=== PATIENT | male | born 1935 | race Caucasian/White ===

== ENCOUNTER → 2018-01-19 06:09 | Outpatient (CLI) | payer MEDICARE, SELFPAY ==
--- NOTE | 2018-01-19 17:43 | STRESSREP_ITS ---
Stress Test Report Pharmacologic myocardial perfusion stress test. 82-year-old man with a history of coronary artery disease status post carotid bypass surgery. Stress protocol: Resting EKG demonstrates sinus bradycardia with a rate of 52 bpm normal intervals and noted resting blood pressure is 102/70 mmHg. 0.4 mg of regadenoson was infused per usual protocol followed by rapid intravenous saline flush injection continuous EKG monitoring was performed. The maximum heart rate attained was 64 bpm which was 46% maximum predicted heart rate the maximum workload attained was 1 metabolic equivalent. At rest there were no ST or T- wave changes noted to suggest abnormal flow reserve at peak infusion no ST or T- wave changes were noted to suggest abnormal flow reserve. Myocardial perfusion protocol. 10.8 mCi of technetium 99m sestamibi was injected at rest. 0.4 mg of regadenoson was infused per usual protocol. At peak infusion 36.0 mCi of technetium 99m sestamibi was injected stress images were obtained stress and rest images were reconstructed and compared in the short axis vertical long and horizontal long axis. Gated images were also obtained pre- Perfusion SPECT analysis: Review of the stress images demonstrate normal uptake of tracer noted in all areas myocardium except for small portion of the apex with mildly reduced perfusion. This is present on the stress and rest images to a similar extent. No areas of reversibility are noted suggest ischemia. Gated SPECT analysis: The gated ejection fraction is noted to be 58%. Conclusion: Normal pharmacologic myocardial perfusion stress test. Preserved ejection fraction.
== END ==
PROVIDERS: Family Provider Family Medicine; PCP Family Medicine; Visit Provider Physician Assistant Medical
DX: I25.10 Atherosclerotic heart disease of native coronary artery without angina pectoris (principal); I10 Essential (primary) hypertension; E78.5 Hyperlipidemia, unspecified; R07.9 Chest pain, unspecified
CPT/HCPCS: 78452; 93017; A9500; A4216; J2785

== ENCOUNTER → 2018-07-27 10:12 | Outpatient (CLI) | payer MEDICARE, SELFPAY ==
[2018-07-27 12:30] LABS: Absolute Lymphocyte Count 0.99 X10^3/ul (0.83-4.51); Absolute Neutrophil Count 4.1 X10^3/uL (2.0-7.7); Basophil# 0.06 X10^3/uL; Eosinophil# 0.33 X10^3/uL; Eosinophils% 5.4 % (0-5); Hematocrit 44.5 % (40-54); Hemoglobin 15.1 g/dl (13.0-16.5); Lymphocyte # 0.99 X10^3/ul (4.0); Lymphocyte % 16.2 % (19-41); Mean Corp Hgb Conc 33.9 g/gl (32-36); Mean Corpuscular Hgb 29.8 pg (27.0-32.0); Mean Corpuscular Volume 87.8 fL (80-94); Mean Platelet Vol. 9.1 fl (6.2-12.0); Monocyte# 0.61 X10^3/uL; Neutrophil # 4.11 X10^3/uL (2.7-7.7); Neutrophil % 67.2 % (47-70); Platelet Count 188 K/mm3 (150-450); RBC Distribution Width CV 14.4 % (11.6-14.6); Red Blood Count 5.07 M/mm3 (4.6-6.2); White Blood Count 6.1 K/mm3 (4.4-11.0)
[2018-07-27 12:37] LABS: POSITIVE COUNT NO; POSITIVE DIFFERENTIAL NO; POSITIVE MORPHOLOGY NO
[2018-07-27 12:45] LABS: AST(SGOT) 29 U/L (15-37); Alanine Aminotransfer ALT/SGPT 31 U/L (16-61); Albumin, Serum 3.5 g/dL (3.2-5.0); Alkaline Phosphatase 94 U/L (45-117); Anion Gap 7 (5-15); BUN 19 mg/dL (7-18); BUN/Creat Ratio 14.4 RATIO (10-20); Bilirubin, Direct 0.18 mg/dL (0.00-0.30); Calcium,Total 8.5 mg/dL (8.5-10.1); Chloride 102 mmol/L (98-107); Cholesterol 118 mg/dL (200); Creatinine, Serum 1.32 mg/dL (0.70-1.30); EST Glomerular Filtration Rate 55 mL/min (>60); Est Glom Filt Rate - Afr Amer 67 mL/min (>60); Globulin 3.5 g/dL (2.2-4.2); Glucose 101 mg/dL (74-106); High Density Lipoprotein 39 mg/dL; Potassium 3.9 mmol/L (3.5-5.1); Sodium Level 139 mmol/L (136-145); Thyroid Stim Hormone (TSH) 2.23 uIU/mL (0.358-3.74); Triglycerides 109 mg/dL; Very Low Density Lipoprotein 22 mg/dL (5-40)
== END ==
PROVIDERS: Physician Assistant Medical; Family Provider Family Medicine; PCP Family Medicine; Visit Provider Family Medicine
DX: I12.9 Hypertensive chronic kidney disease with stage 1 through stage 4 chronic kidney disease, or unspecified chronic kidney disease (principal); N18.3 Chronic kidney disease, stage 3 (moderate); E78.5 Hyperlipidemia, unspecified; Z79.899 Other long term (current) drug therapy
CPT/HCPCS: 36415; 80053; 80061; 82248; 84443; 85025

== ENCOUNTER → 2019-02-05 | Outpatient (CLI) | payer MEDICARE, SELFPAY ==
[2018-08-07 15:00] VITALS: BMI 27.6
--- NOTE | 2019-02-05 | TISS_PTH ---
PATIENT: ALLY LOMAX LOC: [facility] U#:[id number] AGE/SX: 83/M ROOM: RE02/05/[address]: Dr. Garo Lockett DDS : 1935 BED: DIS: 02/05/2019 SPEC #: [id number] RECD: 02/05/19 12:00 STATUS: PATRICIA MARLIN #: [id number] RAVI: 02/05/19 00:[address]: Garo Lockett DEPT: SURGICAL PATHOLOGY RECD BY: Phillip Ruth ENTERED: 02/05/19 13:40 SP TYPE: Tissue Bx ZEUS DR: Dr. Donovan Webber MD Tissues: Skin of lip, NOS Procedures: PAS Fungus (control) Special Stain Group I Surgery Specimen Level IV HEADER OPERATION: Lip biopsy PRE-OP DIAGNOSIS: Lesion lip TISSUE SUBMITTED: Lower lip, rule out actinic changes, squamous cell MICROSCOPIC DIAGNOSIS Lower lip lesion, biopsy: Squamous mucosa with acanthosis, hyperkeratosis, parakeratosis and minimal actinic changes. Solar elastosis. Special stain for fungi is negative for organisms; matched control is appropriate. EDIL:armaan 02/06/19 COMMENT Case has been reviewed in consultation with Dr. Muller who concurs with the above diagnosis. IDC:AM MICROSCOPIC DESCRIPTION Slides are reviewed. GROSS DESCRIPTION Received in fixative is one container labeled with the patient's name and designated lower right lip. The specimen consists of a piece of oneill mucosal tissue measuring 0.6 x 0.3 x 0.3 cm. The specimen is bisected and submitted entirely in one cassette. / EDIL:armaan 02/05/19 TC:5 CPT: 89622, 71205
== END | disposition home or self-care (01) ==
LOC: LABSPEC 13:25
PROVIDERS: Family Provider Family Medicine; PCP Family Medicine; Referring Provider Dentist Oral and Maxillofacial Surgery; Visit Provider Dentist Oral and Maxillofacial Surgery
DX: L83 Acanthosis nigricans (principal); L85.9 Epidermal thickening, unspecified; L57.8 Other skin changes due to chronic exposure to nonionizing radiation
CPT/HCPCS: 88305; 88312

== ENCOUNTER → 2019-02-20 | Outpatient (CLI) | payer MEDICARE, SELFPAY ==
[2018-08-07 15:00] VITALS: BMI 27.6
--- NOTE | 2019-02-20 13:47 | RAD_ITS ---
STUDY: X-RAY - RIGHT SHOULDER REASON FOR EXAM: Male, 83 years old. Pain TECHNIQUE: 4 view(s) of the shoulder. COMPARISON: None. FINDINGS: There is no evidence of fracture or dislocation. There are mild degenerative changes in the acromioclavicular joint. There are no radiodense foreign bodies. RAD/Shoulder min 2 Views IMPRESSION: No fracture or dislocation of the right shoulder. Mild degenerative changes in the acromioclavicular joint. Electronically Signed: Jim Santo, at 14:21 EDT Tel , Service support ,
--- NOTE | 2019-02-20 13:50 | RAD_ITS ---
STUDY: X-RAY - RIGHT HUMERUS REASON FOR EXAM: Male, 83 years old. Pain TECHNIQUE: 2 view(s) of the humerus. COMPARISON: None. FINDINGS: There is no evidence of fracture or dislocation. There are no significant degenerative changes. There are no radiodense foreign bodies. RAD/Humerus min 2 Views IMPRESSION: No fracture or dislocation. Electronically Signed: Jim Santo, at 14:19 EDT Tel , Service support ,
== END | disposition home or self-care (01) ==
PROVIDERS: Family Provider Family Medicine; PCP Family Medicine; Referring Provider Family Medicine; Visit Provider Family Medicine
DX: M25.511 Pain in right shoulder (principal); M79.601 Pain in right arm
CPT/HCPCS: 73030; 73060

== ENCOUNTER 2019-04-19 10:30 | Outpatient (RCR) | payer MEDICARE, SELFPAY ==
[2018-08-07 15:00] VITALS: BMI 27.6
--- NOTE | 2019-02-26 09:15 | HP.PTEVAL_ITS ---
Patient's Visit Information ALLY LOMAX is a 83 year old M referred to Physical Therapy by Donovan Webber MD with a diagnosis of R shoulder pain. Date of Evaluation: 02/26/19 Physical Therapist: SYEDA Lozano - Visit Plan Frequency: 2x /Week Duration: 3 Weeks Plan: 2X/ week for 3 weeks for R shoulder AROM, PROM, RC strength, scapular strength, stretching at end ranges, US to the anterior shoulder, postural exercises with HEP - Subjective Findings: Pt likes to sleep on his R side and it was waking him up at night. He tried to sleep on the other side and it was hard to do. It has steadily got worse and now it is hard to comb hair in the morning. They took an x-ray last week and could not find anything wrong. This has been going on for 5-6 months. He is R handed but he can use his L hand. He can feel pain sitting here in the bicep area and rates it as a 1-2/10. Dr gave him tramadol and he takes it at night when trying to sleep. He does not think that they are helping him very much. He feels at times his R arm is weak. It is generally raising motions that hurt him. - Pain R shoulder Pain Intensity (Out of 10): 2 - Objective R handed: R shoulder flexion 115, ABD 105, IT T 12, ER 49. L shoulder flexion 130, ABD 132, IR T8, 51. R shoulder MMT: flexion 4-/5, abd 4-/5, ER 4/5, IR 4/5. L shoulder MMT: flexion 4/5, abd 4/5, ER 4+/5, IR 4 +/5. Palpation: tender undert the R acromion compared to the L. + HK test, + impingement, + empty can on the R for pain and slight weakness - Goals Goal 1:: I HEP Goal Time Frame: 4-6 Weeks Goal 2:: Increase R shoulder AROM to equal that of the L Goal Time Frame: 4-6 Weeks Goal 3:: Increase R shoulder MMT to equal that of the L Goal Time Frame: 4-6 Weeks Goal 4:: Decrease R shoulder pain to be able to lay on the R side and lift overhead with less than 1/10 pain Goal Time Frame: 4-6 Weeks - Rehabilitation Potential Rehabilitation Potential: Good - Anticipated Interventions Patient/Client Instruction: Educate patient on: Condition, Plan of Care For the Purpose of:: To decrease pain, To decrease swelling/inflammation, To increase ROM, To improve nutrient delivery to tissue, To improve muscle performance and motor function, To improve ability to perform ADL's, To increase tolerance to activity/condition/position, To improve performance and independence with ADL's, To improve ability of physical actions for home/community/work/leisure, To decrease soft tissue restriction, To increase flexibility/ROM Therapeutic Exercise to Include: Strength training, Postural training, Flexibilty training, Passive ROM, Active ROM, Scapular Strength/Stabilization For the Purpose of:: To decrease pain, To increase ROM, To improve nutrient delivery to tissue, To improve muscle performance and motor function, To improve ability to perform ADL's, To improve health of tissue, To decrease soft tissue restriction, To increase flexibility/ROM Manual Therapy Techniques to Include: Mobilization, Passive ROM For the Purpose of:: To decrease pain, To decrease swelling/inflammation, To increase ROM, To improve nutrient delivery to tissue Cryotherapy (ice pack, ice massage): Yes Ultrasound (thermal/non thermal): Yes For the Purpose of:: To decrease pain, To decrease swelling/inflammation, To increase ROM, To improve nutrient delivery to tissue, To improve muscle performance and motor function Thank you for the opportunity to evaluate your patient. For Medicare and Medicare HMO plans, please review the plan of care and approve it. It will need to be FAXED BACK to us at [phone] for Medicare purposes. For Medicare only, by signing this I certify the plan of care. Please let me know if there are questions or concerns regarding this plan of care. Physician Signature: Date:
--- NOTE | 2019-03-27 12:49 | HP.PTREVAL ---
Donovan Webber MD, It has been my pleasure to treat ALLY LOMAX over the last 7 visits for R shoulder pain. Please see the progress note below for an update on the physical therapy plan of care! Subjective: It hurts when he wakes up in the morning and he can;t reach over his head. He is doing supine wand flexion exercises and mid rows at home. He feels that they help the most. The ones that bother him the most are IR. Objective/Function: R shoulder 121 degrees flexion, T12 IR,ER 35 degrees, 115 degrees abd. R shld MMT: IR 4-/5, ER 4/5, flex 4/5, abd 4/5 Plan Plan: ADD US each vist for at least 5 visits and increase strength and continue to work ROM for additional 5-6 visits and see if we can get additional relief. 2X/ week for 3 weeks for R shoulder AROM, PROM, RC strength, scapular strength, stretching at end ranges, US to the anterior shoulder, postural exercises with HEP Goals Goal 1:: I HEP Goal Time Frame: 4-6 Weeks Goal Progress: Goal Met Goal 2:: Increase R shoulder AROM to equal that of the L Goal Time Frame: 4-6 Weeks Goal Progress: Progressing Goal 3:: Increase R shoulder MMT to equal that of the L Goal Time Frame: 4-6 Weeks Goal Progress: Progressing Goal 4:: Decrease R shoulder pain to be able to lay on the R side and lift overhead with less than 1/10 pain Goal Time Frame: 4-6 Weeks Anticipated Interventions Patient/Client Instruction: Educate patient on: Condition, Plan of Care For the Purpose of:: To decrease pain, To decrease swelling/inflammation, To increase ROM, To improve nutrient delivery to tissue, To improve muscle performance and motor function, To improve ability to perform ADL's, To increase tolerance to activity/condition/position, To improve performance and independence with ADL's, To improve ability of physical actions for home/community/work/leisure, To decrease soft tissue restriction, To increase flexibility/ROM Therapeutic Exercise to Include: Strength training, Postural training, Flexibilty training, Passive ROM, Active ROM, Scapular Strength/Stabilization For the Purpose of:: To decrease pain, To increase ROM, To improve nutrient delivery to tissue, To improve muscle performance and motor function, To improve ability to perform ADL's, To improve health of tissue, To decrease soft tissue restriction, To increase flexibility/ROM Manual Therapy Techniques to Include: Mobilization, Passive ROM For the Purpose of:: To decrease pain, To decrease swelling/inflammation, To increase ROM, To improve nutrient delivery to tissue Cryotherapy (ice pack, ice massage): Yes Ultrasound (thermal/non thermal): Yes For the Purpose of:: To decrease pain, To decrease swelling/inflammation, To increase ROM, To improve nutrient delivery to tissue, To improve muscle performance and motor function Please do not hesitate to contact me at [phone] by phone or if you have questions or concerns regarding this new plan of care! Sincerely, Kati Junior MPT
--- NOTE | 2019-04-19 10:53 | HP.PTDCSUM ---
HP - PT D/C Summary It has been my pleasure to treat ALLY LOMAX under orders from Donovan Webber MD, for the diagnosis of R shoulder pain for a total of 11 visit(s). Discharge Date: Please see the following information for a summary of their discharge status. - Subjective Subjective: His shoulder still bothers him. When hewakes up he can hardly lift his arm. Cetain times during the day when he does something he will get a jabbing pain. No pain with sitting. His pain can go up to a 7/10 with a jabbing pain. Sometimes he can reach overhead and he is ok and other times he has jabs of pain. - Pain R shoulder Pain Intensity (Out of 10): 0 - Overall Improvement % Improvement: 15 - Objective Objective/Function: R shoulder MMT: R shoulder flex 3-/5 and shoulder abd 3-/5, and IR 4/5 and ER 3-/5. R shoulder AROM: 120 flexion, 85 abduction, L1 IT, and 40 degrees ER - Goals Goal 1:: I HEP Goal Progress: Goal Met Goal 2:: Increase R shoulder AROM to equal that of the L Goal Progress: Progressing Goal 3:: Increase R shoulder MMT to equal that of the L Goal Progress: Progressing Goal 4:: Decrease R shoulder pain to be able to lay on the R side and lift overhead with less than 1/10 pain - Plan Plan: DC PT back for physician reassessment and pt to continue with wand exercises at home to increase ROM and continue with band strengthening at home - D/C Information If there are questions or concerns regarding this patient's physical therapy, please feel free to call me at [phone]. Thank you for the referral of this patient. Sincerely, Kati Junior, MPT
== END 2019-04-19 19:00 | disposition home or self-care (01) ==
LOC: PT 10:30
PROVIDERS: Family Provider Family Medicine; PCP Family Medicine; Visit Provider Family Medicine
DX: M79.601 Pain in right arm (principal)
CPT/HCPCS: 97035; 97110; 97140; 97161; 97530

== ENCOUNTER → 2020-05-15 08:47 | Outpatient (CLI) | payer MEDICARE, SELFPAY ==
[2019-08-06 08:30] VITALS: BMI 26.9
[2020-05-15 12:22] LABS: Absolute Lymphocyte Count 1.23 X10^3/uL (0.83-4.51); Absolute Neutrophil Count 3.6 X10^3/uL (2.0-7.7); Basophil# 0.06 X10^3/uL; Eosinophil# 0.35 X10^3/uL; Hematocrit 47.5 % (40-54); Hemoglobin 15.4 g/dL (13.0-16.5); Lymphocyte # 1.23 X10^3/ul (4.0); Lymphocyte % 21.1 % (19-41); Mean Corp Hgb Conc 32.4 g/dL (32-36); Mean Corpuscular Hgb 28.9 pg (27.0-32.0); Mean Corpuscular Volume 89.3 fL (80-94); Mean Platelet Vol. 9.1 fl (6.2-12.0); Monocyte# 0.55 X10^3/uL; Monocyte% 9.5 % (0-10); NRBC Flagged by Analyzer 0 % (0-5); Neutrophil # 3.62 X10^3/uL (2.7-7.7); Neutrophil % 62.2 % (47-70); Platelet Count 197 K/mm3 (150-450); RBC Distribution Width SD 45.8 fl (35.1-43.9); Red Blood Count 5.32 M/mm3 (4.6-6.2); White Blood Count 5.8 K/mm3 (4.4-11.0)
[2020-05-15 12:52] LABS: AST(SGOT) 28 U/L (15-37); Alanine Aminotransfer ALT/SGPT 27 U/L (16-61); Albumin, Serum 3.6 g/dL (3.2-5.0); Alkaline Phosphatase 75 U/L (45-117); Anion Gap 5 (5-15); BUN 20 mg/dL (7-18); BUN/Creat Ratio 15.7 RATIO (10-20); Calcium,Total 9.2 mg/dL (8.5-10.1); Chloride 105 mmol/L (98-107); Cholesterol 112 mg/dL (200); Creatinine, Serum 1.27 mg/dL (0.70-1.30); EST Glomerular Filtration Rate 58 mL/min (>60); Est Glom Filt Rate - Afr Amer 70 mL/min (>60); Globulin 3.6 g/dL (2.2-4.2); Glucose 96 mg/dL (74-106); High Density Lipoprotein 45 mg/dL; Potassium 3.5 mmol/L (3.5-5.1); Protein, Total 7.2 g/dL (6.4-8.2); Sodium Level 140 mmol/L (136-145); Thyroid Stim Hormone (TSH) 2.32 uIU/mL (0.358-3.74); Triglycerides 105 mg/dL; Very Low Density Lipoprotein 21 mg/dL (5-40)
== END ==
PROVIDERS: PCP Family Medicine; Visit Provider Family Medicine
DX: I12.9 Hypertensive chronic kidney disease with stage 1 through stage 4 chronic kidney disease, or unspecified chronic kidney disease (principal); N18.30 Chronic kidney disease, stage 3 unspecified; I25.10 Atherosclerotic heart disease of native coronary artery without angina pectoris
CPT/HCPCS: 36415; 80053; 80061; 84443; 85025